=== PATIENT | female | born 1955 | race Caucasian/White ===

== ENCOUNTER 2016-06-06 09:50 | Emergency (ER) | payer OTHER ==
[~2016-06-06] VITALS: Ht 154.9 cm; Wt 92.3 kg
[2016-06-06 10:12] VITALS: BP 138/74
== END 2016-06-06 10:19 | disposition left against medical advice (07) ==
LOC: EME 09:50
DX: S49.92XA Unspecified injury of left shoulder and upper arm, initial encounter (principal); Z53.21 Procedure and treatment not carried out due to patient leaving prior to being seen by health care provider